=== PATIENT | male | born 1990 ===

== ENCOUNTER 2017-01-16 14:11 | Emergency (ER) | payer OTHER, MEDICAID ==
[2017-01-16 14:18] VITALS: BP 139/84; PULSE 86; RESP 18; TEMP 98.6; O2SAT 98
[2017-01-16] MEDS ORDERED: ceFAZolin 1 GM in Sodium Chloride 0.9% 100 ML IVPB ONE (14:55)
--- NOTE | 2017-01-16 15:03 | ED PDOC ---
Upper Extremity Pain/Injury Time Seen by Provider: 01/16/17 14:21 Chief Complaint (Nursing): Upper Extremity Problem/Injury History Per: Patient History/Exam Limitations: no limitations Onset/Duration Of Symptoms: Mins Current Symptoms Are (Timing): Still Present Quality: Sharp Severity: Moderate Additional Complaint(s): 26 YO Male with no sig PMH presents to [facility] ED after work injury. 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 The splint transecting the skin, and pt reports bleeding that stopped. Pt did try to remove the splint but was unsuccessful and a piece of the splint still remains in the skin. Past Medical History Reviewed: Historical Data, Nursing Documentation, Vital Signs Vital Signs: Last Vital Signs Temp 98.6 F 01/16/17 14:13 Pulse 86 01/16/17 14:13 Resp 18 01/16/17 14:13 BP 139/84 01/16/17 14:13 Pulse Ox 98 01/16/17 14:13 - Surgical History Surgical History: No Surg Hx - Family History Family History: States: Diabetes - Social History Current smoker - smoking cessation education provided: No Ex-Smoker (has not smoked in the last 12 months): No Alcohol: Social Drugs: Cannabis - Home Medications Home Medications: Ambulatory Orders Medication Instructions Recorded Amoxicillin/Clavulanate [Augmentin 1 tab PO BID #14 tab 01/16/17 875 MG-125 MG] - Allergies Allergies/Adverse Reactions: Allergies Allergy/AdvReac Type Severity Reaction Status Date / Time No Known Allergies Allergy Verified 01/16/17 14:13 Review of Systems ROS Statement: Except As Marked, All Systems Reviewed And Found Negative Musculoskeletal: Positive for: Hand Pain (Pain in the L hand, area around the splint) Neurological: Negative for: Numbness Physical Exam - Reviewed Nursing Documentation Reviewed: Yes Vital Signs Reviewed: Yes - Physical Exam Appears: Positive for: Well, Non-toxic, No Acute Distress Head Exam: Positive for: ATRAUMATIC, NORMAL INSPECTION, NORMOCEPHALIC Skin: Positive for: Normal Color, Warm, DRY Eye Exam: Positive for: EOMI, Normal appearance, PERRL ENT: Positive for: Normal ENT Inspection Neck: Positive for: Normal, Painless ROM Cardiovascular/Chest: Positive for: Regular Rate, Rhythm Respiratory: Positive for: CNT, Normal Breath Sounds Gastrointestinal/Abdominal: Positive for: Normal Exam, Bowel Sounds, Soft Back: Positive for: Normal Inspection Extremity: Positive for: Normal ROM, Other (Pt has a ~3cm wooden splint in the interphalangeal area of the 1st and 2nd digit. The spling transsected the area, and has a small portion 1cm protruding. sensory and motor intact in all digits. ) Neurologic/Psych: Positive for: Alert, Oriented - ECG O2 Sat by Pulse Oximetry: 98 - Progress ED Course And Treament: Wound was cleaned in the ED, not currently bleeding. Ancef administered, pt refused anacel due to recent vaccination. Xray of the hand was appreciated, splint not appreciated. Lidocaine was injected in the L interphalangeal area, where the split was inserted. In a sterile field, area of the skin was sterilized. Small incision was made and subsequently wooden splint was removed. L hand dressing was done Pt was dc home with Augmentin and given information to follow up with hand specialist. Infection precautions given to patient Disposition - Clinical Impression Clinical Impression: Soft tissues foreign body - Disposition Referrals: Hayden Rios MD [Staff Provider] - Disposition Time: 16:50 Condition: STABLE Additional Instructions: YOUR HANDS ARE AT HIGH RISK OF INFECTION DUE TO A LIKELY RETAINED SPLINTER FOLLOWUP WITH HAND SPECIALIST DAVID FOR DEFINITVE MANAGEMENT RETURN TO ANY ER FOR SWELLING, PAIN, DISCHARGE FORM SITE, FEVER, OR ANY CONCERN. USE ANTIBIOTICS DIRECTED. KEEP AREA DRESSED AND CLEAN XRAYS L HAND PERFORMED ANCEF 1GM IV GIVEN IN ER RX AUGMENTIN 875MG 2X DAILY FOR 7 DAYS.\ TETAUS BOOSTER DECLINED (STATES HAD SHOT 1 YEAR AGO) Prescriptions: Amoxicillin/Clavulanate [Augmentin 875 MG-125 MG] 1 tab PO BID #14 tab Instructions: Soft Tissue Foreign Body (ED) Forms: [employer] (Irish)
[2017-01-16] MEDS ORDERED: Lidocaine 1% Inj (20ml) IJ ONE (15:47)
[2017-01-16] MEDS ORDERED: Lidocaine 1% Inj (20ml) ONE (16:06)
--- NOTE | 2017-01-19 13:13 | RAD ---
PROCEDURE: Open left hand HISTORY: Foreign body, splinter anatomic area of interest 2nd digit COMPARISON: None TECHNIQUE: Standard protocol for this study/examination. FINDINGS: No significant/acute osseous, articular or soft tissue abnormalities. No visulaized radiopaque/visualized foreign body. IMPRESSION: No significant or acute findings to account for/ related to the clinical presentation.
== END 2017-01-16 16:37 | disposition home or self-care (01) ==
LOC: H.ER 14:11
DX: M79.5 Residual foreign body in soft tissue (principal)
CPT/HCPCS: 10120; 73130; 99282; J0690